=== PATIENT | male | born 1990 | race Caucasian/White ===

== ENCOUNTER 2023-08-19 20:46 | Emergency (ER) | payer MEDICAID, OTHER ==
[2023-08-19 21:09] VITALS: O2SAT 99
--- NOTE | 2023-08-19 21:32 | XRAY Report ---
PROCEDURE: Knee 4+V RT INDICATIONS: PAIN/TENDERNESS/SWELLING R KNEE TECHNIQUE: 4 views of the knee(s) were acquired. COMPARISON: None. FINDINGS: Bones: No fractures or dislocations. No suspicious bony lesions. Soft tissues: No knee joint effusion. No suspicious soft tissue calcifications or masses. IMPRESSION: No acute bony abnormality. If there is persistent clinical concern for a radiographically occult fracture, recommend immobilizat ion and repeat imaging in 10 to 14 days. Reviewed by: Dale Vivar MD on 08/19/2023 9:30 PM PDT Approved by: Dale Vivar MD on 08/19/2023 9:30 PM PDT Station ID: [id number]
--- NOTE | 2023-08-19 21:36 | ED Physician Documentation ---
PD HPI LOWER EXT INJURY - Stated complaint Stated Complaint: R KNEE PX - Chief complaint Chief Complaint: Ext Problem - History obtained from History obtained from: Patient - Additional information Additional information: Atraumatic right knee pain that got worse today, his grandma had a near fall and he helps her. Pain is in the patella. Never had it before. He took 4 ibuprofen prior to arrival and it is significantly helping. PD PAST MEDICAL HISTORY - Past Medical History Past Medical History: No Cardiovascular: None Respiratory: None Neuro: None Endocrine/Autoimmune: None GI: None : None HEENT: None Psych: None Musculoskeletal: None Derm: None - Past Surgical History Past Surgical History: Yes General: Other - Present Medications Home Medications: Ambulatory Orders Medication Instructions Recorded Confirmed No Known Home Medications 08/19/23 08/19/23 - Allergies Allergies/Adverse Reactions: Allergies Allergy/AdvReac Type Severity Reaction Status Date / Time No Known Drug Allergies Allergy Verified 08/19/23 21:00 - Social History Does the pt smoke?: Yes Smoking Status: Current every day smoker Does the pt drink ETOH?: No Does the pt have substance abuse?: No - Immunizations Immunizations are current?: Yes - POLST Patient has POLST: No PD ED PE NORMAL - Vitals Vital signs reviewed: Yes - General General: Alert and oriented X 3, No acute distress - Extremities Extremities: Other (Right knee is nontender, full range of motion, no warmth or swelling or redness. ACL, PCL, MCL, LCL testing is intact with no pain. Negative grind testing.) - Neuro Neuro: Alert and oriented X 3, Normal speech Results - Vitals Vitals: Vital Signs - 24 hr 08/19/23 08/19/23 20:54 21:47 Temperature 36.5 C Heart Rate 71 65 Respiratory 17 16 Rate Blood Pressure 125/80 144/91 H O2 Saturation 99 99 Oxygen O2 Source Room air - Rads (name of study) 4 view x-ray of the right knee is unremarkable. Relevant Findings:: Final report received, EMP independent interpretation of test Departure - Departure Disposition: 01 Home, Self Care Clinical Impression: Right knee pain Condition: Good Record reviewed to determine appropriate education?: Yes Instructions: ED Knee Pain [facility] Follow-Up: Orthopedic Care [Provider Group] Comments: The cause of your right knee pain is unknown, that said the x-ray looks fine and the examination is not consistent with something serious like a meniscus injury or ligamentous injury. I think it is fine to continue the ibuprofen and to baby a little bit with gentle stretching and heat. If not better over the next couple weeks and can follow-up with our orthopedic surgeons, the numbers on this form. Return for new or worsening symptoms. Forms: PCP List Discharge Date/Time: 08/19/23 21:47
[2023-08-19 21:48] VITALS: BP 144/91
== END 2023-08-19 21:47 | disposition home or self-care (01) ==
LOC: ED 20:46
DX: M25.561 Pain in right knee (principal); F17.200 Nicotine dependence, unspecified, uncomplicated
CPT/HCPCS: 99283

== ENCOUNTER 2023-11-09 06:12 | Outpatient (CLI) | payer MEDICAID | END 2023-11-09 23:59 | disposition critical access hospital (66) | LOC: EMS 06:12 | DX: S71.111A Laceration without foreign body, right thigh, initial encounter (principal); X78.9XXA Intentional self-harm by unspecified sharp object, initial encounter; M79.89 Other specified soft tissue disorders; R45.851 Suicidal ideations; F10.90 Alcohol use, unspecified, uncomplicated | CPT/HCPCS: A0425; A0429; A0999 ==

== ENCOUNTER 2023-11-09 06:19 | Emergency (ER) | payer MEDICAID ==
[2023-11-09] MEDS: lidocaine 1% 20 ML MDV SUBQ ONE (06:42)
--- NOTE | 2023-11-09 07:29 | ED Physician Documentation ---
History of Present Illness - Stated complaint Stated Complaint: HBD - Chief complaint Chief Complaint: Laceration - History obtained from History obtained from: Patient, EMS - Additonal information Additional information: The patient comes to the emergency department via EMS for chief complaint of alcohol intoxication and self-mutilation. He states that he has some issues in the past that are always there and then he and his girlfriend also had a tumultuous short-term relationship and break-up recently and the patient has been upset about this. He has been drinking alcohol and has been cutting himself on his legs. He states most of them are just scratches but occasionally he has tried to cut himself little deeper. The patient also punched a utility pole today and now his right hand is hurting. No other complaints at this time. He states is not suicidal or homicidal, but just wants to let some of the stress out. PD PAST MEDICAL HISTORY - Past Medical History Cardiovascular: None Respiratory: None Neuro: None Endocrine/Autoimmune: None GI: None : None HEENT: None Psych: None Musculoskeletal: None Derm: None - Past Surgical History Past Surgical History: Yes General: Other - Present Medications Home Medications: Ambulatory Orders Medication Instructions Recorded Confirmed No Known Home Medications 08/19/23 11/09/23 - Allergies Allergies/Adverse Reactions: Allergies Allergy/AdvReac Type Severity Reaction Status Date / Time No Known Drug Allergies Allergy Verified 11/09/23 06:22 - Social History Does the pt smoke?: Yes Smoking Status: Current every day smoker Does the pt drink ETOH?: No Does the pt have substance abuse?: No - Immunizations Immunizations are current?: Yes - POLST Patient has POLST: No PD ED PE NORMAL - Vitals Vital signs reviewed: Yes - General General: Alert and oriented X 3, No acute distress, Well developed/nourished - HEENT HEENT: Atraumatic, EOMI, Moist mucous membranes - Neck Neck: Supple, no meningeal sign - Cardiac Cardiac: RRR, No murmur - Respiratory Respiratory: No respiratory distress, Clear bilaterally - Abdomen Abdomen: Soft, Non tender, Non distended - Derm Derm: Warm and dry, Other (Multiple horizontal scratches across bilateral proximal thighs. 1 laceration is about 3 mm deep and gaping mildly. No foreign bodies. Bleeding controlled.) - Extremities Extremities: Other (Edema and mild deformity over the right fourth MCP joint. Left hand exam normal.) - Neuro Neuro: Alert and oriented X 3, computer systems manager 2-12 intact, No motor deficit, No sensory deficit, Normal speech - Psych Psych: Normal mood, Normal affect Results - Vitals Vitals: Vital Signs - 24 hr 11/09/23 06:22 Temperature 37.3 C Heart Rate 101 H Respiratory 20 Rate Blood Pressure 143/87 H O2 Saturation 96 Oxygen O2 Source Room air Procedures - Laceration (location) Right thigh Length in cm: 5 Wound type: Linear, Into subcut fat Neurovascular status: Sensory intact, Motor intact Tendon involvement: Tendon intact Anesthesia: LET Wound preparation: Hibiclens, To the base Skin layer closure: Nylon, Interrupted, Size #-0 - enter number (4.0), Sutures - enter # (10) PD Medical Decision Making - ED course Complexity details: reviewed results, re-evaluated patient, considered differential, d/w patient ED course: The patient was not suicidal or homicidal, but had had escalating behaviors of self-harm and stated that he would like to get help. He was still somewhat intoxicated and initially refused labs. After his laceration was repaired, I did ask nursing staff to try to approach him again about labs. I have also discussed the situation with my oncoming colleague as it is the end of my shift. The patient is signed out to Dr. Barnard at change of shift, pending increased sobriety, possibly mental health evaluation, and final disposition. Departure - Departure Forms: PCP List
--- NOTE | 2023-11-09 09:01 | XRAY Report ---
PROCEDURE: Hand 3+V RT INDICATIONS: punched utility pole, pain and swelling TECHNIQUE: 3 views of the hand acquired. COMPARISON: None. FINDINGS: Bones: No acute fractures or dislocations. No suspicious bony lesions. Soft tissues: No suspicious soft tissue calcifications. Soft tissue edema is present dorsally. IMPRESSION: No acute osseous abnormality. If there is clinical concern or persistent symptoms, additional imaging such as repeat radiographs or advanced imaging (e.g. CT, MRI) may be helpful for further evaluation. Reviewed by: Dennis Rowley MD on 11/09/2023 8:59 AM PDT Approved by: Dennis Rowley MD on 11/09/2023 8:59 AM PDT Station ID: [id number]
[2023-11-09 10:46] LABS: BASOPHILS % (AUTO) 0.6 %; EOSINOPHILS # (AUTO) 0.1 10^3/uL (0.0-0.7); EOSINOPHILS % (AUTO) 1.1 %; HCT - HEMATOCRIT 44.4 % (42.0-52.0); HGB - HEMOGLOBIN 14.5 g/dL (14.0-18.0); LYMPHOCYTES # (AUTO) 2.4 10^3/uL (1.5-3.5); MEAN CORPUSCULAR HEMOGLOBIN 30.2 pg (27.0-31.0); MEAN CORPUSCULAR HGB CONC 32.7 g/dL (32.0-36.0); MEAN CORPUSCULAR VOLUME 92.5 fL (80.0-94.0); MEAN PLATELET VOLUME 9.5 fL (7.4-11.4); MONOCYTES # (AUTO) 0.6 10^3/uL (0.0-1.0); MONOCYTES % (AUTO) 8.1 %; NEUTROPHILS # (AUTO) 4.1 10^3/uL (1.5-6.6); NEUTROPHILS % (AUTO) 56.9 %; PLT - PLATELET COUNT 302 10^3/uL (130-450); RED CELL DISTRIBUTION WIDTH 12.2 % (12.0-15.0); WHITE BLOOD COUNT 7.3 x10^3/uL (4.8-10.8)
[2023-11-09 11:02] LABS: ALBUMIN 4.3 g/dL (3.2-5.5); ALBUMIN/GLOBULIN RATIO 1.7 (1.0-2.2); BILIRUBIN,TOTAL 0.9 mg/dL (0.2-1.0); CALCIUM 9.3 mg/dL (8.5-10.3); ETOH - ETHANOL 36.2 mg/dL; POTASSIUM 3.6 mmol/L (3.5-4.5); TOTAL PROTEIN 6.9 g/dL (6.4-8.9)
[2023-11-09 11:09] LABS: THC CANNABINOID SCREEN, URINE POSITIVE (NEGATIVE)
[2023-11-09 11:10] LABS: AMPHETAMINE SCREEN,URINE POSITIVE (NEGATIVE); BARBITURATE SCREEN,UR NEGATIVE (NEGATIVE); BENZODIAZEPINES SCREEN, URINE NEGATIVE (NEGATIVE); BUPRENORPHINE SCREEN, URINE NEGATIVE (NEGATIVE); COCAINE SCREEN URINE NEGATIVE (NEGATIVE); METHADONE SCREEN, URINE NEGATIVE (NEGATIVE); METHAMPHETAMINES SCREEN, URINE POSITIVE (NEGATIVE); OPIATE SCREEN, URINE NEGATIVE (NEGATIVE); OXYCODONE SCREEN, URINE NEGATIVE (NEGATIVE); TRICYCLIC ANTIDEPRESSANT,URINE NEGATIVE (NEGATIVE)
--- NOTE | 2023-11-09 12:54 | ED Physician Documentation ---
ED Addendum - Addendum Addendum: 11/09/23 12:52 Patient was signed out to me by Dr. Arboleda awaiting social work consult for depression. Not actively suicidal. He slept in the emergency department, blood work does not show any acute significant abnormalities. Urine toxicology positive for methamphetamine, benzodiazepine and cannabis. Social work saw the patient, resources given. Not suicidal at this time. Able to contract for safety. His laceration was repaired by Dr. Arboleda. Wound care instructions given at bedside. Patient counseled regarding signs and symptoms for which I believe and urgent re-evaluation would be necessary. Patient with good understanding of and agreement to plan and is comfortable going home at this time This document was made in part using voice recognition software. While efforts are made to proofread this document, sound alike and grammatical errors may occur. Departure - Departure Disposition: 01 Home, Self Care Clinical Impression: Depression Qualifiers: Depression Type: unspecified Qualified Code(s): F32.A - Depression, unspecified Condition: Good Instructions: ED Depression Follow-Up: your,doctor in 1 week [Other] Comments: Please follow-up with your doctor in about 10 days for suture removal. Return if you notice redness, swelling or drainage from the wound. You should also discuss with your doctor your depression and discuss if starting medications would be right for you. If you are having any thoughts that you do not want to live, thoughts of hurting yourself, or thoughts of hurting anyone else, please call 911, the crisis line at 988, or go to your nearest emergency department. Crisis Line and is available to talk to someone [email or web address] is also available to chat with someone online if you prefer. There are also many resources on this website and apps for your phone to help with your mental health You can also text the word START to [phone] to chat with someome via text. Forms: PCP List
[2023-11-09 13:11] VITALS: BP 140/80; O2SAT 98
== END 2023-11-09 13:06 | disposition home or self-care (01) ==
LOC: EDUNIT# → ED 06:19
DX: S71.112A Laceration without foreign body, left thigh, initial encounter (principal); S71.111A Laceration without foreign body, right thigh, initial encounter; X78.9XXA Intentional self-harm by unspecified sharp object, initial encounter; F32.A Depression, unspecified; F17.200 Nicotine dependence, unspecified, uncomplicated; F15.90 Other stimulant use, unspecified, uncomplicated; F12.90 Cannabis use, unspecified, uncomplicated; F11.90 Opioid use, unspecified, uncomplicated
CPT/HCPCS: 12002; 36415; 80053; 80306; 82077; 83690; 85025; 99283; 99284

== ENCOUNTER 2023-12-05 08:10 | Outpatient (CLI) | payer SELFPAY | END 2023-12-05 23:59 | disposition critical access hospital (66) | LOC: EMS 08:10 | DX: Z04.6 Encounter for general psychiatric examination, requested by authority (principal); S11.91XA Laceration without foreign body of unspecified part of neck, initial encounter; X78.1XXA Intentional self-harm by knife, initial encounter | CPT/HCPCS: A0425; A0429 ==

== ENCOUNTER 2023-12-05 08:22 | Emergency (ER) | payer SELFPAY ==
[2023-12-05 08:48] LABS: BASOPHILS # (AUTO) 0.1 10^3/uL (0.0-0.1); BASOPHILS % (AUTO) 0.7 %; EOSINOPHILS # (AUTO) 0.1 10^3/uL (0.0-0.7); EOSINOPHILS % (AUTO) 1.2 %; HCT - HEMATOCRIT 44.4 % (42.0-52.0); HGB - HEMOGLOBIN 15.2 g/dL (14.0-18.0); LYMPHOCYTES # (AUTO) 2.4 10^3/uL (1.5-3.5); LYMPHOCYTES % (AUTO) 31.8 %; MEAN CORPUSCULAR HGB CONC 34.2 g/dL (32.0-36.0); MEAN CORPUSCULAR VOLUME 90.6 fL (80.0-94.0); MEAN PLATELET VOLUME 9.2 fL (7.4-11.4); MONOCYTES # (AUTO) 0.7 10^3/uL (0.0-1.0); MONOCYTES % (AUTO) 9.3 %; NEUTROPHILS # (AUTO) 4.2 10^3/uL (1.5-6.6); NEUTROPHILS % (AUTO) 56.7 %; PLT - PLATELET COUNT 311 10^3/uL (130-450); RED CELL DISTRIBUTION WIDTH 12.3 % (12.0-15.0); WHITE BLOOD COUNT 7.5 x10^3/uL (4.8-10.8)
[2023-12-05] MEDS: LORazepam 1 MG TABLET PO STA ×2 (08:54→19:15)
[2023-12-05 08:56] LABS: BILIRUBIN,URINE NEGATIVE (NEGATIVE); GLUCOSE, URINE (UA) NEGATIVE (NEGATIVE); KETONES,URINE (UA) NEGATIVE (NEGATIVE); LEUKOCYTE ESTERASE, URINE NEGATIVE (NEGATIVE); NITRITE,URINE NEGATIVE (NEGATIVE); OCCULT BLOOD,URINE NEGATIVE (NEGATIVE); PROTEIN,URINE NEGATIVE (NEGATIVE); UROBILINOGEN,URINE 0.2 (NORMAL) E.U./dL (NORMAL)
[2023-12-05] MEDS: OLANZapine 10 MG VIAL IM STA (08:56)
[2023-12-05 09:00] LABS: MAGNESIUM 1.9 mg/dL (1.7-2.3)
[2023-12-05 09:03] LABS: CLARITY,URINE CLEAR (CLEAR)
[2023-12-05 09:06] LABS: ACETAMINOPHEN 0.5 ug/mL; ALBUMIN 4.5 g/dL (3.2-5.5); ALBUMIN/GLOBULIN RATIO 2.1 (1.0-2.2); ALKALINE PHOSPHATASE 52 IU/L (42-121); ALT ALANINE AMINOTRANSFERASE 13 IU/L (10-60); AST ASPARTATE AMINOTRANSFERASE 28 IU/L (10-42); BILIRUBIN,TOTAL 0.5 mg/dL (0.2-1.0); BUN - BLOOD UREA NITROGEN 19 mg/dL (6-20); CALCIUM 9.3 mg/dL (8.5-10.3); CARBON DIOXIDE - CO2 27 mmol/L (21-32); CHLORIDE 103 mmol/L (101-111); CK- CREATINE KINASE 484 IU/L (30-223); CREATININE 1.2 mg/dL (0.6-1.3); GFR - MDRD 69 (>89); GLUCOSE 88 mg/dL (74-104); LIPASE 13 U/L (11-82); POTASSIUM 3.7 mmol/L (3.5-4.5); SODIUM 138 mmol/L (135-145); TOTAL PROTEIN 6.6 g/dL (6.4-8.9)
[2023-12-05 09:15] LABS: AMPHETAMINE SCREEN,URINE POSITIVE (NEGATIVE); BARBITURATE SCREEN,UR NEGATIVE (NEGATIVE); BENZODIAZEPINES SCREEN, URINE NEGATIVE (NEGATIVE); BUPRENORPHINE SCREEN, URINE NEGATIVE (NEGATIVE); COCAINE SCREEN URINE NEGATIVE (NEGATIVE); METHADONE SCREEN, URINE NEGATIVE (NEGATIVE); METHAMPHETAMINES SCREEN, URINE POSITIVE (NEGATIVE); OPIATE SCREEN, URINE NEGATIVE (NEGATIVE); OXYCODONE SCREEN, URINE NEGATIVE (NEGATIVE); THC CANNABINOID SCREEN, URINE POSITIVE (NEGATIVE); TRICYCLIC ANTIDEPRESSANT,URINE NEGATIVE (NEGATIVE)
[2023-12-05 09:20] LABS: THYROID STIMULATING HORMONE 3.58 uIU/mL (0.34-5.60)
[2023-12-05 10:09] LABS: ETOH - ETHANOL 88.8 mg/dL; SALICYLATE < 1.5 mg/dL
--- NOTE | 2023-12-05 14:35 | ED Physician Documentation ---
PD HPI MHE - Stated complaint Stated Complaint: MHE - Chief complaint Chief Complaint: MHE - History obtained from History obtained from: Patient, EMS, Police - History of Present Illness Primary symptom: Suicidal ideation, Self harm - cut (The patient does do self cutting on the thighs for stress relief and has been doing that this past week. Today's gesture was in response to his mother calling the police due to his level of agitation. He made cuts along his neck superficially with one of them deep enough to bleed.), Anxiety Timing - onset: Today Contributing factors: Sig other (The patient had concerned that his girlfriend was "cheating on him" because he had seen unusual fingerprints on his TV and some items had been moved around. He does admit to meth cannabis and alcohol use. He was upset about it and his mother said she was going to call the police because agitation.) Similar symptoms before: Diagnosis (anxiety and substance use. No prior suicidal attempts.) PD PAST MEDICAL HISTORY - Past Medical History Past Medical History: Yes Cardiovascular: None Respiratory: None Neuro: None Endocrine/Autoimmune: None GI: None : None HEENT: None Psych: Anxiety Musculoskeletal: None Derm: None - Past Surgical History Past Surgical History: Yes General: Other - Present Medications Home Medications: Ambulatory Orders Medication Instructions Recorded Confirmed No Known Home Medications 08/19/23 12/05/23 - Allergies Allergies/Adverse Reactions: Allergies Allergy/AdvReac Type Severity Reaction Status Date / Time No Known Drug Allergies Allergy Verified 12/05/23 08:25 - Social History Does the pt smoke?: Yes Smoking Status: Current every day smoker Does the pt drink ETOH?: Yes ETOH Use: Liquor Does the pt have substance abuse?: Yes Substance Use and Type: Marijuana, Meth, Cocaine/Crack, Prescription Pills, Other - Immunizations Immunizations are current?: Yes - POLST Patient has POLST: No PD ED PE NORMAL - Vitals Vital signs reviewed: Yes - General General: Alert and oriented X 3, Well developed/nourished, Other (anxious and hyperactive leg movement/etc but conversant and cooperative. Bandage around anterior neck. ) - Neck Neck: Supple, no meningeal sign, No adenopathy - Cardiac Cardiac: No murmur. No: RRR (mild tachycardia) - Respiratory Respiratory: No respiratory distress, Clear bilaterally - Abdomen Abdomen: Soft, Non tender - Derm Derm: Normal color, Warm and dry - Neuro Neuro: Alert and oriented X 3, No motor deficit, Normal speech Eye Opening: Spontaneous Motor: Obeys Commands Verbal: Oriented GCS Score: 15 - Psych Psych: Normal affect (anxious but calm talking) Results - Vitals Vitals: Vital Signs - 24 hr 12/05/23 12/05/23 12/05/23 08:25 09:54 16:59 Temperature 37.3 C 36.4 C L 36.3 C L Heart Rate 107 H 90 84 Respiratory 20 18 16 Rate Blood Pressure 123/98 H 133/63 H 137/74 H O2 Saturation 99 98 100 Oxygen O2 Source Room air - Labs Labs: Laboratory Tests 12/05/23 12/05/23 12/05/23 08:43 08:43 08:45 WBC 7.5 RBC 4.90 Hgb 15.2 Hct 44.4 MCV 90.6 MCH 31.0 MCHC 34.2 RDW 12.3 Plt Count 311 MPV 9.2 Neut # (Auto) 4.2 Lymph # (Auto) 2.4 [place] # (Auto) 0.7 Eos # (Auto) 0.1 Baso # (Auto) 0.1 Absolute Nucleated RBC 0.00 Nucleated RBC % 0.0 Sodium 138 Potassium 3.7 Chloride 103 Carbon Dioxide 27 Anion Gap 8.0 BUN 19 Creatinine 1.2 Estimated GFR (MDRD) 69 L Glucose 88 Calcium 9.3 Magnesium 1.9 Total Bilirubin 0.5 AST 28 ALT 13 Alkaline Phosphatase 52 Total Creatine Kinase 484 H Total Protein 6.6 Albumin 4.5 Globulin 2.1 Albumin/Globulin Ratio 2.1 Lipase 13 TSH 3.58 Urine Color YELLOW Urine Clarity CLEAR Urine pH 6.0 Ur Specific [place] 1.025 Urine Protein NEGATIVE Urine Glucose (UA) NEGATIVE Urine Ketones NEGATIVE Urine Occult Blood NEGATIVE Urine Nitrite NEGATIVE Urine Bilirubin NEGATIVE Urine Urobilinogen 0.2 (NORMAL) Ur Leukocyte Esterase NEGATIVE Ur Microscopic Review NOT INDICATED Urine Culture Comments NOT INDICATED Salicylates < 1.5 Urine Opiates Screen NEGATIVE Ur Buprenorphine Scrn NEGATIVE Ur Oxycodone Screen NEGATIVE Urine Methadone Screen NEGATIVE Acetaminophen 0.5 Ur Barbiturates Screen NEGATIVE Ur Tricyclics Screen NEGATIVE Ur Phencyclidine Scrn NEGATIVE Ur Amphetamine Screen POSITIVE H U Methamphetamines Scrn POSITIVE H U Benzodiazepines Scrn NEGATIVE Urine Cocaine Screen NEGATIVE U Cannabinoids Screen POSITIVE H Ur Drug Screen Comment CUTOFF CONC BELOW: Ethyl Alcohol 88.8 SARS-CoV-2 (PCR) 12/05/23 09:00 WBC RBC Hgb Hct MCV MCH MCHC RDW Plt Count MPV Neut # (Auto) Lymph # (Auto) [place] # (Auto) Eos # (Auto) Baso # (Auto) Absolute Nucleated RBC Nucleated RBC % Sodium Potassium Chloride Carbon Dioxide Anion Gap BUN Creatinine Estimated GFR (MDRD) Glucose Calcium Magnesium Total Bilirubin AST ALT Alkaline Phosphatase Total Creatine Kinase Total Protein Albumin Globulin Albumin/Globulin Ratio Lipase TSH Urine Color Urine Clarity Urine pH Ur Specific [place] Urine Protein Urine Glucose (UA) Urine Ketones Urine Occult Blood Urine Nitrite Urine Bilirubin Urine Urobilinogen Ur Leukocyte Esterase Ur Microscopic Review Urine Culture Comments Salicylates Urine Opiates Screen Ur Buprenorphine Scrn Ur Oxycodone Screen Urine Methadone Screen Acetaminophen Ur Barbiturates Screen Ur Tricyclics Screen Ur Phencyclidine Scrn Ur Amphetamine Screen U Methamphetamines Scrn U Benzodiazepines Scrn Urine Cocaine Screen U Cannabinoids Screen Ur Drug Screen Comment Ethyl Alcohol SARS-CoV-2 (PCR) NOT DETECTED Procedures - Laceration (location) anterior neck Length in cm: 5.3 Wound type: Linear, Into subcut fat (does not go below the platysma. Superficial vein bleeding, stopped with local anesth actually and sutured.) Neurovascular status: Sensory intact Anesthesia: Lidocaine 1% with epi Wound preparation: Wound explored, To the base Skin layer closure: Nylon, Running, Size #-0 - enter number (5), Sutures - enter # (13) PD Medical Decision Making - ED course Complexity details: considered differential (The patient is having agitated behavior and was having some concerning thoughts about his girlfriend cheating on him. Unclear if warranted or paranoiac based on recent meth use. He did threaten to kill himself if his mother called the police. She did call them because of his behaviors.), d/w patient, d/w learning and development consultant (KALPES[employer] Gu) ED course: He did cut himself on the front of the neck which she states was impulsive. He had stated he was going to kill himself but did superficial lacerations except for 1 that 1 slightly deeper to cause bleeding but it is still outside of the platysma muscle. The 1 laceration in particular did require suturing to stop superficial bleeding and because of the openness. Other ones were not needing suturing. He does have multiple lacerations on the anterior thighs, the right in particular which are not partial or full-thickness. There are superficial. They do appear a little bit older. The patient does have positive ill urine for cannabis meth and his alcohol level is 88. He did admit to these recreational substances. He is not acting suicidal at this time and he denies feeling that at the moment. However he did have a concerning gesture and I felt evaluation was appropriate. Brad from [facility] came to evaluate the patient and felt he was not needing detainment because of self-harm potential. She did try to help him with the substance use and the patient is going to be able to go to [facility] substance abuse treatment today. They have beds available and interviewed him and accepted him. At this point we will be able to get him from here to the detox center directly. On first arrival, the patient did state he was still feeling quite agitated. I offered medication to help him relax and he was quite open and accepting to have medication. He was given Zyprexa IM and Ativan p.o. This provided good calming effect and he actually slept and relaxed a bit. He was still arousable enough to interview with the DCR. The patient was seen by the DCR who felt he could be discharged and had arranged contact with [facility] for him. They have a bed available and had provisionally accepted him. The ER note and labs were sent to them. He has now been about 3 hours and we are waiting thumbs up from there provider review in order to fully accept him. He is comfortable at this point here in the department. It is feeling more effective for him to be here until excepted to go directly there rather than discharging to home. Will have to see the length of time before they are able to accept him however. Again at this point still waiting to hear back from the detox facility. Departure - Departure Clinical Impression: Laceration of neck, Polysubstance use disorder, Deliberate self-cutting, Anxiety reaction, Methamphetamine-induced anxiety disorder Condition: Stable Record reviewed to determine appropriate education?: Yes Forms: PCP List
[2023-12-05 17:02] VITALS: O2SAT 100
--- NOTE | 2023-12-05 20:48 | ED Physician Documentation ---
ED Addendum - Addendum Addendum: 12/05/23 20:47 Care of patient signed out to me by Dr. Stewart. Patient has been cleared by DCR, no indication for involuntary commitment at this time. Attempted to help patient reach out to various detox facilities in the area, however they have declined his case. At this time there is no indication for further hospitalization or indication for detaining patient in the emergency department. Patient given referrals to several detox centers in the area.
[2023-12-05 20:58] VITALS: BP 130/91
== END 2023-12-05 20:58 | disposition home or self-care (01) ==
LOC: ED 08:22
DX: S11.81XA Laceration without foreign body of other specified part of neck, initial encounter (principal); S71.112A Laceration without foreign body, left thigh, initial encounter; S71.111A Laceration without foreign body, right thigh, initial encounter; X78.9XXA Intentional self-harm by unspecified sharp object, initial encounter; F41.9 Anxiety disorder, unspecified; F12.90 Cannabis use, unspecified, uncomplicated; F15.90 Other stimulant use, unspecified, uncomplicated; F19.90 Other psychoactive substance use, unspecified, uncomplicated; Z91.51 Personal history of suicidal behavior; F17.200 Nicotine dependence, unspecified, uncomplicated
CPT/HCPCS: 12002; 36415; 80053; 80143; 80179; 80306; 81003; 82077; 82550; 83690; 83735; 84443; 85025; 87635; 96372; 99284; 99285; J8499; 81001; 87086